=== PATIENT | female | born 1985 | race African-American/Black ===

== ENCOUNTER 2016-12-12 08:43 | Emergency (ER) | payer MEDICAID ==
[~2016-12-12 08:43] MED LIST: LORT5TAB PO; METR-1 PO; PHEN12.5 PO; PHEN12.5 PR; PREN0.01 PO; Z.0.BCPILL PO
[2016-12-12 09:09] VITALS: BP 104/59; PULSE 80
[2016-12-12 09:11] VITALS: RESP 16; TEMP 98.3
--- NOTE | 2016-12-12 09:16 | PD ---
HPI Chief Complaint I feel tired, I think I have contractions Date Seen: Dec 12, 2016 Time Seen: 09:00 (Perry Perez MD) Travel History International Travel<30 Days: No Contact w/Intl Traveler<30Days: No Known Affected Area: No (Perry Perez MD) History of Present Illness HPI 31-year-old to 12 at 27 weeks and 4 days of gestation, EDC 03/09/17, patient presents to OB ED stating that she is tired and that she thinks is having contractions, patient stated that she just wanted to be checked out since she had 2 previous deliveries. Patient is unassigned, OB care is with Dr. Walker. course is significant for a history of 2 previous deliveries. Patient denies cramping, leakage of fluids, vaginal bleeding. She reports presence of movement. Para: 2 : 4 Miscarriage: 1 : 0 (Perry Perez MD) History Past Medical History Narrative Medical Denies Medical History: Denies Significant Hx (Perry Perez MD) Obstetric History Obstetric History delivery 2, spontaneous 1 (Perry Perez MD) Past Surgical History Narrative Surgical Status post cryotherapy in 2011 for abnormal Pap smear (Perry Perez MD) Family History Narrative Family History Maternal grandfather has diabetes and hypertension, brother has bipolar disorder , paternal grandmother has a history of cancer of the lymph nodes, maternal grandmother has diabetes (Perry Perez MD) Social History Alcohol Use: No Tobacco Use: No Substance Abuse: No (Perry Perez MD) Allergies-Medications (Allergen,Severity, Reaction): Coded Allergies: No Known Allergies (Verified , 12/11/10) Home Meds Active Scripts Promethazine Hcl 12.5 Mg Tab12.5 Mg PO Q6HPRN #7 FOR NAUSEA Prov:ORI BEACH M.D. 01/29/10 Promethazine Hcl (Phenergan)12.5 Mg Sup12.5 Mg TX Q6HPRN #3 FOR NAUSEA Prov:ORI BEACH M.D. 01/29/10 Metronidazole (Flagyl)500 Mg [id number] Mg PO BID #14 Prov:ORI BEACH M.D. 01/29/10 Hydrocodone-Acetaminophen (Lortab 5/500)5 Mg/500 Mg Tab1 Tab PO Q4-6HPRN #12 FOR PAIN Prov:ORI BEACH M.D. 01/29/10 Reported Medications Miscellaneous ( Control Pills) Tab1 Tab PO DAILY 01/28/10 Vitamins 1 Tab PO DAILY Ref 0 while 01/28/10 Review of Systems Except as stated in HPI: all other systems reviewed are Neg Genitourinary: Other (patient stated that she is having contractions) (Perry Win MD) Physical Exam Narrative GENERAL: Well-nourished, well-developed patient. SKIN: Warm and dry. HEAD: Normocephalic and atraumatic. EYES: No scleral icterus. No injection or drainage. ENT: No nasal drainage noted. Mucous membranes pink. Airway patent. NECK: Supple, trachea midline. No JVD. CARDIOVASCULAR: Regular rate and rhythm without murmurs, gallops, or rubs. RESPIRATORY: Breath sounds equal bilaterally. No accessory muscle use. BREASTS: Bilateral exam showed no masses , no retractions, no nipple discharge. ABDOMEN/GI: Abdomen soft, gravid, non-tender, bowel sounds present, no rebound, no guarding Gravid to 27 weeks size Fundal Height: 27 cm GENITOURINARY: External Genitalia: intact and normal in appearance BUS glands: Normal Cervix: Closed, long, posterior, vaginal discharge is noted, sample is sent for wet prep profile Dilatation: Closed Effacement: 30% Station: -3 Presentation: Cephalic Membranes: Intact Uterine Contractions: Occasional FHT's: Category: one Baseline: 120s Reactive: Yes Variability: Moderate Decels: None EXTREMITIES: No cyanosis or edema. BACK: Nontender without obvious deformity. No CVA tenderness. NEUROLOGICAL: Awake and alert. Motor and sensory grossly within normal limits. Five out of 5 muscle strength in all muscle groups. Normal speech. (Perry Perez MD) Data Data Vital Signs Reviewed: Yes Orders Vital Signs (Adult) .ON ADMISSION (12/12/16 09:08) ^ Labor Status (12/12/16 09:08) Urinalysis - C+S If Indicated (12/12/16 09:08) ^ Non Stress Test (12/12/16 09:08) ^ Hydration (12/12/16 09:08) Diet Regular Basic (12/12/16 Breakfast) (Perry Perez MD) MDM Medical Record Reviewed: Yes (Perry Perez MD) Diagnosis Diagnosis: Primary Impression: 27 weeks gestation of Additional Impressions: Vaginal discharge during in second trimester False labor before 37 completed weeks of gestation Qualified Code: O47.02 - False labor before 37 completed weeks of gestation, second trimester Disposition: 01 DISCHARGE HOME Condition: Stable Patient Instructions: Early Labor Signs (ED), General Instructions, Labor (ED) Additional Instructions: Return to labor and delivery if increased symptoms, contractions, cramping, leakage of fluids, vaginal bleeding, or decreased movements. Drink plenty of fluids. Monitor kick counts. Keep your office appointment with your doctor as scheduled. Pelvic rest is advised. Departure Forms: Tests/Procedures Addendum Remarks UA results negative for UTI. Negative for clue cells, trichomonas, and yeast. Fibronectin positive, but patient had sexual intercourse last night. Pt given 1mg of Terbutaline. ultrasound performed, which demonstrated cervical length at 3.6cm. Patient remained stable and was monitored continuously. Will discharge in stable condition dw Dr. Mcelroy (Emre Hatch MD R1) Addendum Remarks I rounded on the patient. I rounded with the resident. I reviewed the resident' s assessment and plan of care for this patient. I am in agreement with the plan of care for this patient. (Sabrina Guevara MD) Perry Perez MD Dec 12, 2016 09:16 Emre Hatch MD R1 Dec 12, 2016 12:09 Sabrina Guevara MD Dec 12, 2016 12:16
[2016-12-12 09:36] LABS: BLOOD, URINE NEG (NEG); COMMENT (UR) CULT NOT INDICATED; CULTURE IF INDICATED CULT NOT INDICATED; GLUCOSE,URINE NEG (NEG); KETONE, URINE NEG (NEG); MUCUS URINE FEW /lpf (OCC); NITRITE,URINE NEG (NEG); PH, URINE 6.5 (5.0-8.5); SQUAMOUS EPITHELIAL CELL URINE 5 /hpf (0-5); URINE COLOR YELLOW (YELLW/STRAW)
[2016-12-12] MEDS ORDERED: TERBUTALINE INJ 1 MG/ML AMP ONE (10:46)
[2016-12-12 13:44] LABS: CHLAMYDIA PCR NOT DETECTED (NOT DETECT); NEISSERIA PCR NOT DETECTED (NOT DETECT)
== END 2016-12-12 12:35 | disposition home or self-care (01) ==
LOC: HOBED 08:43
DX: O47.02 False labor before 37 completed weeks of gestation, second trimester (principal); N89.8 Other specified noninflammatory disorders of vagina; Z3A.27 27 weeks gestation of pregnancy
CPT/HCPCS: 76816; 76817; 81001; 82731; 87210; 87491; 87591; 96360; 99284; J3105